=== PATIENT | female | born 1990 | race African-American/Black ===

== ENCOUNTER 2016-11-25 20:56 | Emergency (ER) | payer OTHER ==
[2016-11-25 21:20] VITALS: BP 121/67; PULSE 74; TEMP 98.3; BMI 29.8
[2016-11-25 21:46] LABS: URINE APPEARANCE SLCLOUDY; URINE BILIRUBIN NEGATIVE (NEGATIVE); URINE COLOR YELLOW; URINE GLUCOSE (UA) NEGATIVE (NEGATIVE); URINE KETONE 1+ (NEGATIVE); URINE NITRITE NEGATIVE (NEGATIVE); URINE PROTEIN NEGATIVE (NEGATIVE); URINE UROBILINOGEN NEGATIVE E.U./dl (0.2-1.0)
[2016-11-25 21:47] LABS: URINE BLOOD 1+ (NEGATIVE); URINE LEUK ESTERASE 2+ (NEGATIVE)
[2016-11-25 21:48] LABS: URINE BACTERIA RARE /hpf (NONE SEEN); URINE HYALINE CAST 4 /lpf; URINE MUCUS MANY; URINE RBC 9 /hpf (0-3); URINE WBC 104 /hpf (3-5)
--- NOTE | 2016-11-25 21:57 | PDOC ---
History of Present Illness - General Chief Complaint: Pain, Acute Stated Complaint: PRESSURE ON BLADDER Time Seen by Provider: 11/25/16 21:46 History Source: Patient Exam Limitations: No Limitations - History of Present Illness Initial Comments: 11/25/16 21:57 Patient is a 26-year-old female, no significant medical history currently on no medication presents with urinary frequency, dysuria, urinary retention. Patient reports last sexual encounter was Tuesday with the same partner who was recently tested for STDs and negative. Patient denies any fever, no back pain, no vaginal discharge or bleeding. No hematuria. Past Medical History: Denies. Allergies: No known allergies Medications: control Family History: Non-contributory Social History: Denies smoking, alcohol use, or IVDU Review of Systems GENERAL/CONSTITUTIONAL: No fever or chills. No weakness. No weight change. HEAD, EYES, EARS, NOSE AND THROAT: No change in vision. No ear pain or discharge. No sore throat. CARDIOVASCULAR: No chest pain or shortness of breath. RESPIRATORY: No cough, wheezing, or hemoptysis. GASTROINTESTINAL: No nausea, vomiting, diarrhea or constipation. No rectal bleeding. GENITOURINARY: Dysuria frequency and urinary retention. MUSCULOSKELETAL: No joint or muscle swelling or pain. No neck or back pain. SKIN AND BREASTS: No rash or easy bruising. NEUROLOGIC: No headache, vertigo, loss of consciousness, or loss of sensation. PSYCHIATRIC: No depression or anxiety. ENDOCRINE: No increased thirst. No abnormal weight change. HEMATOLOGIC/LYMPHATIC: No anemia, easy bleeding, or history of blood clots. ALLERGIC/IMMUNOLOGIC: No hives or skin allergy. No latex allergy. Physical Exam: GENERAL: The patient is awake, alert, and fully oriented, in no acute distress. LUNGS: Breath sounds equal, clear to auscultation bilaterally. No wheezes, and no crackles. HEART: Regular rate and rhythm, normal S1 and S2 without murmur, rub or gallop. ABDOMEN: Soft, nontender, normoactive bowel sounds. No guarding, no rebound. No masses. No bruising or abrasions MUSCULOSKELETAL: Normal range of motion, no edema. No clubbing or cyanosis. No cords, erythema, or tenderness. No CVA Tenderness with fist palpation. SKIN: Warm, Dry, normal turgor, no rashes or lesions noted. 11/25/16 22:11 Past History - Past Medical History Allergies/Adverse Reactions: Allergies Allergy/AdvReac Type Severity Reaction Status Date / Time No Known Allergies Allergy Verified 08/01/15 13:32 Home Medications: Ambulatory Orders Nitrofurantoin Monohyd/M-Cryst [Macrobid -] 100 mg PO BID #14 capsule 11/25/16 Anemia: Yes Cardiac Disorders: Yes (TACHYCARDIA) Suicide Attempt (Hx): No - Reproductive History Dysfunctional Uterine Bleeding: Yes - Immunization History Immunization Up to Date: Yes - Psycho/Social/Smoking Cessation Hx Anxiety: No Suicidal Ideation: No Smoking History: Never smoked Have you smoked in the past 12 months: No Number of Cigarettes Smoked Daily: 0 Information on smoking cessation initiated: No Hx Alcohol Use: No Drug/Substance Use Hx: No Substance Use Type: None Hx Substance Use Treatment: No *Physical Exam - Vital Signs Last Vital Signs Temp Pulse Resp BP Pulse Ox 98.3 F 74 14 121/67 100 11/25/16 21:17 11/25/16 21:17 11/25/16 21:17 11/25/16 21:17 11/25/16 21:17 ED Treatment Course - ADDITIONAL ORDERS Additional order review: Laboratory Results 11/25/16 21:30 Urine Color Yellow Urine Appearance Slcloudy Urine pH 5.0 Urine Protein Negative Urine Glucose (UA) Negative Urine Ketones 1+ H Urine Blood 1+ H Urine Nitrite Negative Urine Bilirubin Negative Urine Urobilinogen Negative Ur Leukocyte Esterase 2+ H Urine RBC 9 Urine WBC 104 Ur Epithelial Cells Rare Urine Bacteria Rare Hyaline Casts 4 Urine Mucus Many Urine HCG, Qual Negative Medical Decision Making - Medical Decision Making 11/25/16 22:14 A/P: Patient with urinary tract infection. We'll DC patient on Macrobid, follow- up with CHEMICAL ENGINEER she has an appointment next week and will be reexamined. I discussed the physical exam findings, ancillary test results and final diagnoses with the patient. I answered all of the patient's questions. The patient was satisfied with the care received and felt comfortable with the discharge plan and treatment plan. The patient will call to arrange follow-up and will return to the Emergency Department with any new, persistent or worsening symptoms. *DC/Admit/Observation/Transfer Diagnosis at time of Disposition: UTI (urinary tract infection) Qualifiers: Urinary tract infection type: site unspecified Hematuria presence: without hematuria Qualified Code(s): N39.0 - Urinary tract infection, site not specified - Discharge Dispostion Disposition: HOME Condition at time of disposition: Good Admit: No - Prescriptions Prescriptions: Nitrofurantoin Monohyd/M-Cryst [Macrobid -] 100 mg PO BID #14 capsule - Patient Instructions Printed Discharge Instructions: Urinary Tract Infection Additional Instructions: Increase fluids, recommend follow-up with TELECOM MANAGER. Refrain from sexual activity for at least a week
== END 2016-11-25 22:27 | disposition home or self-care (01) ==
LOC: JERFT 20:56
DX: N39.0 Urinary tract infection, site not specified (principal)
CPT/HCPCS: 81003; 81015; 84703; 87086; 87186; 99281-25

== ENCOUNTER 2018-03-16 05:12 | Emergency (ER) | payer OTHER ==
--- NOTE | 2018-03-16 05:24 | PDOC ---
History of Present Illness - General Chief Complaint: Toothache Stated Complaint: TOOTHACHE Time Seen by Provider: 03/16/18 05:21 - History of Present Illness Initial Comments: 03/16/18 05:22 27 yo F with h/o iron deficient anemia who p/w teeth pain. Patient reports worsening lower molar teeth pain beginning this AM, and characterized as sharp shooting teeth pain. Worse on right side. Pain worse with clenching jaws. Denies drooling, trismus, dysphagia, hoarsness/muffled voice, pain with mastication. Patient scheduled for outpt. dental apt. within 3-4 weeks. Denies OTC analgesia. Patient denies N/V, F,C, CP, SOB, urinary complaints, abdominal pain, diarrhea, constipation, lightheadedness, weakness, sensory changes. PMHx: as noted above ROS: as noted Allergies: NKDA Past History - Past Medical History Allergies/Adverse Reactions: Allergies Allergy/AdvReac Type Severity Reaction Status Date / Time No Known Allergies Allergy Verified 03/16/18 05:21 Home Medications: Ambulatory Orders Nitrofurantoin Monohyd/M-Cryst [Macrobid -] 100 mg PO BID #14 capsule 11/25/16 Clindamycin [Cleocin -] 450 mg PO Q8H #63 capsule MDD 1350 mg 03/16/18 Oxycodone HCl/Acetaminophen [Percocet 5-325 mg Tablet -] 1 tab PO TID PRN #10 tablet MDD 3 03/16/18 Anemia: Yes Cardiac Disorders: Yes (TACHYCARDIA) COPD: No - Reproductive History Dysfunctional Uterine Bleeding: Yes - Immunization History Immunization Up to Date: Yes - Suicide/Smoking/Psychosocial Hx Smoking History: Never smoked Have you smoked in the past 12 months: No Number of Cigarettes Smoked Daily: 0 Hx Alcohol Use: No Drug/Substance Use Hx: No Substance Use Type: None Hx Substance Use Treatment: No Review of Systems - Review of Systems Comments:: 03/16/18 05:22 GENERAL/CONSTITUTIONAL: No fever or chills. No weakness. HEAD, EYES, EARS, NOSE AND THROAT:+ Teeth pain. No change in vision. No ear pain or discharge. No sore throat. CARDIOVASCULAR: No chest pain or shortness of breath RESPIRATORY: No cough, wheezing, or hemoptysis. GASTROINTESTINAL: No nausea, vomiting, diarrhea or constipation. GENITOURINARY: No dysuria, frequency, or change in urination. MUSCULOSKELETAL: No joint or muscle swelling or pain. No neck or back pain. SKIN: No rash NEUROLOGIC: No headache, vertigo, loss of consciousness, or change in strength/ sensation. ENDOCRINE: No increased thirst. No abnormal weight change HEMATOLOGIC/LYMPHATIC: No anemia, easy bleeding, or history of blood clots. ALLERGIC/IMMUNOLOGIC: No hives or skin allergy. *Physical Exam - Vital Signs Last Vital Signs Temp Pulse Resp BP Pulse Ox 98.0 F 76 18 136/84 100 03/16/18 05:17 03/16/18 05:17 03/16/18 05:17 03/16/18 05:17 03/16/18 05:17 - Physical Exam Comments: 03/16/18 05:23 GENERAL: Awake, alert, and fully oriented, in no acute distress HEAD: No signs of trauma, normocephalic, atraumatic EYES: PERRLA, EOMI, sclera anicteric, conjunctiva clear ENT: + Dental caries at mandibular 3rd molar BL, with exposed enamel. Auricles normal inspection, hearing grossly normal, nares patent, oropharynx clear without exudates. Moist mucosa NECK: Normal ROM, supple, no lymphadenopathy, JVD, or masses LUNGS: No distress, speaks full sentences, clear to auscultation bilaterally HEART: Regular rate and rhythm, normal S1 and S2, no murmurs, rubs or gallops, peripheral pulses normal and equal bilaterally. EXTREMITIES : Normal inspection, Normal range of motion, no edema. No clubbing or cyanosis. SKIN: Warm, Dry, normal turgor, no rashes or lesions noted Medical Decision Making - Medical Decision Making 03/16/18 05:39 27 yo F with h/o iron deficient anemia who p/w BL molar teeth pain. VSS, AF. + Dental caries at mandibular 3rd molar BL, with exposed enamel. Probable pulpitis , with absent evidence of abscess. Low suspicion parotitis, mastoiditis, sialadenitis, tonsillits, or other concerning deep space infection of oral cavity. No evidence of respiratory compromise. Able to tolerate oral secretions , absent wheezing/stridor. Ed Course: Clindamycin 450 mg, Ibuprofen 600 mg Patient states that she will f/u with dental this week Clindamycin and Percocet sent to pharmacy Patient stable for d/c with return precautions *DC/Admit/Observation/Transfer Diagnosis at time of Disposition: Tooth ache - Discharge Dispostion Disposition: HOME Condition at time of disposition: Stable Decision to Admit order: No - Prescriptions Prescriptions: Clindamycin [Cleocin -] 450 mg PO Q8H #63 capsule MDD 1350 mg Oxycodone HCl/Acetaminophen [Percocet 5-325 mg Tablet -] 1 tab PO TID PRN #10 tablet MDD 3 PRN Reason: Severe Pain - Referrals Referrals: Zay Randle [Primary Care Provider] - - Patient Instructions Printed Discharge Instructions: DI for Dental Pain Additional Instructions: Please return to the emergency department with any new or worsening symptoms or concerns. Please follow up with your primary care physician within 72 hours. Please take 450 mg Clindamycin 3 times a day for 7 days. - Post Discharge Activity - Attestations Physician Attestion: 03/16/18 05:23 I attest to the information provided in this note.
[2018-03-16 05:26] VITALS: BP 136/84; PULSE 76; TEMP 98; BMI 29.0
--- NOTE | 2018-03-16 05:34 | PDOC ---
Attending Attestation - Resident Resident Name: Wilman Hayesson - ED Attending Attestation I have performed the following: I have examined & evaluated the patient, The case was reviewed & discussed with the resident, I agree w/resident's findings & plan, Exceptions are as noted - HPI HPI: 03/16/18 05:54 27 yo F presenting to the ER with a complaint of dental pain Pain has been present for It has been progressively worsening No fevers or chills She has already scheduled follow up with dental but this is not for another few weeks - Physicial Exam PE: 03/16/18 05:59 GENERAL: Awake, alert, and fully oriented, in no acute distress EYES: PERRLA, EOMI, sclera anicteric, conjunctiva clear ENT: + Dental caries at mandibular 3rd molar BL, with exposed enamel. NECK: Normal ROM, supple, no lymphadenopathy, JVD, or masses - Medical Decision Making 03/16/18 05:58 will d/c on abx and pain medications Pt strongly encouraged to follow up with Dental Urgent Care for possible dental extraction
[2018-03-16] MEDS ORDERED: CLINDAMYCIN HCL 150 MG CAPSULE (FP) PO ONE (05:36)
[2018-03-16] MEDS ORDERED: IBUPROFEN 600 MG TABLET (FP) PO ONE ×2 (05:36→05:40)
[2018-03-16] MEDS ORDERED: CLINDAMYCIN HCL 150 MG CAPSULE (FP) ONE (05:40)
== END 2018-03-16 06:16 | disposition home or self-care (01) ==
LOC: JER 05:12
DX: K08.89 Other specified disorders of teeth and supporting structures (principal)
CPT/HCPCS: 99281-25

== ENCOUNTER 2018-03-24 05:02 | Emergency (ER) | payer OTHER ==
[2018-03-24 05:48] VITALS: BP 117/71; PULSE 76; TEMP 99.4; BMI 29.8
--- NOTE | 2018-03-24 05:55 | PDOC ---
Attending Attestation - Resident Resident Name: Cherelle Lake - ED Attending Attestation I have performed the following: I have examined & evaluated the patient, The case was reviewed & discussed with the resident, I agree w/resident's findings & plan, Exceptions are as noted - HPI HPI: 03/24/18 05:58 Ms Rambo Watts is a 27 yo F presenting (again) to the ER with a complaint of dental pain Pain has been present for a week ago It has been progressively worsening No fevers or chills She was seen in the ER She has already scheduled follow up with dental but this is not for another few weeks 03/24/18 06:11 - Physicial Exam PE: 03/24/18 06:03 GENERAL: Awake, alert, and fully oriented, in no acute distress EYES: PERRLA, EOMI, sclera anicteric, conjunctiva clear ENT: + Dental caries at mandibular 3rd molar BL, with exposed enamel. NECK: Normal ROM, supple, no lymphadenopathy 03/24/18 06:10 - Medical Decision Making 03/24/18 05:56 Pt will be seeing the dentist on Tuesday (3 days) Pt is fine with alternating motrin and tylenol for pain Return precautions given
[2018-03-24] MEDS ORDERED: FLUCONAZOLE 50 MG TABLET PO ONE (06:01)
--- NOTE | 2018-03-24 06:08 | PDOC ---
History of Present Illness - General Chief Complaint: Toothache Stated Complaint: TOOTHACHE Time Seen by Provider: 03/24/18 05:49 History Source: Patient Exam Limitations: No Limitations - History of Present Illness Initial Comments: 03/24/18 06:03 27 yo F with h/o iron deficient anemia who presents with toothache. She was recently seen here at [facility] (03/16) for toothache/infection, she was prescribed antibiotics and pain medication. Patient states that the pain has improved but cannot see her dentist until Tuesday. She has been taking advil and ibprofen for pain. She also endorses vaginal itching and irritation after taking antibiotics. Patient reports worsening lower molar teeth pain beginning this AM, and characterized as sharp shooting teeth pain. Worse on right side. Pain worse with clenching jaws. Denies drooling, trismus, dysphagia, hoarsness/muffled voice, pain with mastication. Patient denies N/V, F,C, CP, SOB, urinary complaints, abdominal pain, diarrhea, constipation, lightheadedness, weakness, sensory changes. 03/24/18 06:09 Timing/Duration: 1 week Severity: mild Past History - Past Medical History Allergies/Adverse Reactions: Allergies Allergy/AdvReac Type Severity Reaction Status Date / Time No Known Allergies Allergy Verified 03/16/18 05:21 Home Medications: Ambulatory Orders Clindamycin [Cleocin -] 450 mg PO Q8H #63 capsule MDD 1350 mg 03/16/18 Oxycodone HCl/Acetaminophen [Percocet 5-325 mg Tablet -] 1 tab PO TID PRN #10 tablet MDD 3 03/16/18 Anemia: Yes Cardiac Disorders: Yes (TACHYCARDIA) COPD: No - Reproductive History Dysfunctional Uterine Bleeding: Yes - Immunization History Immunization Up to Date: Yes - Suicide/Smoking/Psychosocial Hx Smoking History: Never smoked Have you smoked in the past 12 months: No Number of Cigarettes Smoked Daily: 0 Hx Alcohol Use: No Drug/Substance Use Hx: No Substance Use Type: None Hx Substance Use Treatment: No Review of Systems - Review of Systems Able to Perform ROS?: Yes Is the patient limited Martiniquais proficient: Yes Constitutional: Yes: See HPI HEENTM: Yes: Mouth Pain, Dental Problems Respiratory: No: Cough, Shortness of Breath Cardiac (ROS): No: Chest Pain, Lightheadedness, Palpitations ABD/GI: No: Abdominal Distended, Abd. Pain w/ defecation *Physical Exam - Vital Signs Last Vital Signs Temp Pulse Resp BP Pulse Ox 99.4 F 76 19 117/71 99 03/24/18 05:05 03/24/18 05:05 03/24/18 05:05 03/24/18 05:05 03/24/18 05:05 - Physical Exam General Appearance: Yes: Appropriately Dressed. No: Apparent Distress HEENT: positive: Other ( Dental caries at mandibular 3rd molar BL, with exposed enamel. Auricles normal inspection, hearing grossly normal, nares patent, oropharynx clear without). negative: Excessive drooling, Thrush Respiratory/Chest: positive: Lungs Clear Cardiovascular: positive: Regular Rhythm, Regular Rate Medical Decision Making - Medical Decision Making 03/24/18 06:10 This is a 27 year old female with tooth decay and erosion. On empiric antibiotics for infection. Has completed 6 out of 7 day course. Pain improved. #tooth ache #vaginal itching most likely due to yeast infection from antibiotics -tyelenol -diflucan 03/24/18 06:13 Disposition: d/c home on Tylenol and ibuprofen; cont antibiotics *DC/Admit/Observation/Transfer Diagnosis at time of Disposition: Tooth ache - Discharge Dispostion Disposition: HOME Condition at time of disposition: Stable Decision to Admit order: No - Referrals Referrals: Zay Randle [Primary Care Provider] - - Patient Instructions Printed Discharge Instructions: DI for Tooth Decay, DI for Dental Pain Additional Instructions: Ember Rambo Watts please continue to take tyelenol and ibprofen interchangeably for tooth pain. As discussed do not continue to take advil with ibprofen due to serious effects of kidney injury and stomach ulcer. Please see dentist as soon as possible and continue your antibiotic course. If you experience any worsening of symptoms please return to the emergency room. - Post Discharge Activity
== END 2018-03-24 06:43 | disposition home or self-care (01) ==
LOC: JER 05:02
DX: K08.89 Other specified disorders of teeth and supporting structures (principal)
CPT/HCPCS: 99281-25

== ENCOUNTER 2018-03-24 10:24 | Emergency (ER) | payer OTHER ==
[2018-03-24 10:36] VITALS: BP 124/70; PULSE 68; TEMP 97.9; BMI 29.8
--- NOTE | 2018-03-24 11:38 | PDOC ---
History of Present Illness - General Chief Complaint: Toothache Stated Complaint: TOOTHACHE Time Seen by Provider: 03/24/18 10:59 History Source: Patient Exam Limitations: No Limitations - History of Present Illness Initial Comments: 03/24/18 11:31 HISTORY OF PRESENT ILLNESS: 27-year-old female without significant medical history presents emergency department for reevaluation of toothache. Patient has had multiple visits to this emergency room already and has an appointment with Deya hallman for dental care on Tuesday 03/27. Patient was initially seen and placed on clindamycin and given Percocet to help control the pain. Patient re-present of her pain this morning and is tried alternating Tylenol and Motrin which has not relieved her pain. Patient is here for reevaluation and pain management. No recent travel or sick contacts. PAST MEDICAL HISTORY: Denies past medical history SURGICAL HISTORY: Denies ALLERGIES: No known drug allergies REVIEW OF SYSTEMS General/Constitutional: Denies fever or chills. Denies weakness, weight change. HEENT: Denies change in vision. Denies ear pain or discharge. Denies sore throat. Toothache. Cardiovascular: Denies chest pain or shortness of breath. Respiratory: Denies cough, wheezing, or hemoptysis. Gastrointestinal: Denies nausea, vomiting, diarrhea or constipation. Denies rectal bleeding. Genitourinary: Denies dysuria, frequency, or change in urination. Musculoskeletal: Denies joint or muscle swelling or pain. Denies neck or back pain. Skin and breasts: Denies rash or easy bruising. Neurologic: Denies headache, vertigo, loss of consciousness, or loss of sensation. Psychiatric: Denies depression or anxiety. Endocrine: Denies increased thirst. Denies abnormal weight change. Hematologic/Lymphatic: Denies anemia, easy bleeding, or history of blood clots. Allergic/Immunologic: Denies hives or skin allergy. Denies latex allergy. PHYSICAL EXAM General Appearance: Well-appearing, appropriately dressed. No apparent distress , no intoxication. HEENT: EOMI, PERRLA, normal ENT inspection, normal voice, TMs normal, pharynx normal. No conjunctival pallor. No photophobia, scleral icterus. Multiple obvious dental caries presents most notably to 17,16,31,32. With almost total destruction of the teeth 17 and 32. No palpable abscess. Neck: Supple. Trachea midline. No tenderness, rigidity, carotid bruit, stridor , lymphadenopathy, or thyromegaly. Respiratory/Chest: Lungs CTAB. No shortness of breath, chest tenderness, respiratory distress, accessory muscle use. No crackles, rales, rhonchi, stridor , wheezing, dullness Cardiovascular: RRR. S1, S2. No JVD, murmur, bradycardia, tachycardia. Vascular Pulses: Dorsalis-Pedis (R): 2+, Dorsalis-Pedis (L): 2+ Gastrointestinal/Abdominal: Normal bowel sounds. Abdomen soft, non-distended. No tenderness or rebound tenderness. No organomegaly, pulsatile mass, guarding, hernia, hepatomegaly, splenomegaly. Lymphatic: No adenopathy, tenderness. Musculoskeletal/Extremities: Normal inspection. FROM of all extremities, normal capillary refill. Pelvis Stable. No CVA tenderness. No tenderness to extremities, pedal edema, swelling, erythema or deformity. Integumentary: Appropriate color, dry, warm. No cyanosis, erythema, jaundice or rash Neurologic: tax compliance manager II-XII intact. Fully oriented, alert. Appropriate mood/affect. Motor strength 5/5. No appreciable EOM palsy, facial droop or sensory deficit. Past History - Past Medical History Allergies/Adverse Reactions: Allergies Allergy/AdvReac Type Severity Reaction Status Date / Time No Known Allergies Allergy Verified 03/24/18 10:37 Home Medications: Ambulatory Orders Acetaminophen [Tylenol] 650 mg PO QID PRN 03/24/18 Clindamycin [Cleocin -] 450 mg PO Q8H #15 capsule MDD 1350 mg 03/24/18 Ibuprofen [Ibu] 800 mg PO QID PRN 03/24/18 Oxycodone HCl/Acetaminophen [Percocet 5-325 mg Tablet] 1 tab PO Q4H PRN #15 tablet MDD 5 03/24/18 Anemia: Yes Cardiac Disorders: Yes (TACHYCARDIA) COPD: No - Reproductive History Dysfunctional Uterine Bleeding: Yes - Immunization History Immunization Up to Date: Yes - Suicide/Smoking/Psychosocial Hx Smoking History: Unknown if ever smoked Have you smoked in the past 12 months: No Number of Cigarettes Smoked Daily: 0 Hx Alcohol Use: No Drug/Substance Use Hx: No Substance Use Type: None Hx Substance Use Treatment: No *Physical Exam - Vital Signs Last Vital Signs Temp Pulse Resp BP Pulse Ox 97.9 F 68 18 124/70 03/24/18 10:35 03/24/18 10:35 03/24/18 10:35 03/24/18 10:35 Medical Decision Making - Medical Decision Making 03/24/18 11:35 A/P: 27-year-old woman with multiple dental caries causing toothache Inferior alveolar block Extend clindamycin prescription Percocet 1 tablet every 4 hours as needed for pain. Discharge *DC/Admit/Observation/Transfer Diagnosis at time of Disposition: Dental caries - Discharge Dispostion Disposition: HOME Condition at time of disposition: Stable Decision to Admit order: No - Prescriptions Prescriptions: Clindamycin [Cleocin -] 450 mg PO Q8H #15 capsule MDD 1350 mg Oxycodone HCl/Acetaminophen [Percocet 5-325 mg Tablet] 1 tab PO Q4H PRN #15 tablet MDD 5 PRN Reason: For Toothache - Referrals Referrals: Zay Randle [Primary Care Provider] - - Patient Instructions Printed Discharge Instructions: DI for Tooth Decay Additional Instructions: Rest, drink lots of fluids: Teas, water, soups Saltwater gargles/ keep mouth clean and rinse after each meal May use wet teabag for pain relief to area Avoid hard chewing foods, stick to ice cream, Jell-O, yogurt etc. Tylenol or Motrin for fever and pain Complete all medication as prescribed Call [facility] at [phone] Followup with private physician in one to 2 days as needed Return to emergency department for worsened symptoms, fevers, swelling to face or worsened pain - Post Discharge Activity
== END 2018-03-24 12:14 | disposition home or self-care (01) ==
LOC: JERFT 10:24
DX: K02.9 Dental caries, unspecified (principal); R00.0 Tachycardia, unspecified
CPT/HCPCS: 99281-25

== ENCOUNTER 2018-10-27 01:40 | Emergency (ER) | payer OTHER | END 2018-10-27 01:53 | disposition home or self-care (01) | LOC: FER 01:40 ==

== ENCOUNTER 2022-04-29 00:38 | Emergency (ER) | payer OTHER ==
[2022-04-29] MEDS ORDERED: LACTULOSE 20 GM/30 ML UDC (FOR ORAL USE ONLY) PO ONE (00:46)
[2022-04-29] MEDS ORDERED: DALBAVANCIN HCL 1,500 MG in DEXTROSE 5%-WATER - 500 ML IVPB ONE (00:58)
[2022-04-29] MEDS ORDERED: POLYETHYLENE GLYCOL (HEALTHYLAX) 3350 17 GM PACKET PO SCH (01:00)
[2022-04-29 01:03] VITALS: BP 125/73; PULSE 95; RESP 18; TEMP 98; BMI 28.3
[2022-04-29] MEDS ORDERED: LACTULOSE 20 GM/30 ML UDC (FOR ORAL USE ONLY) ONE (01:05)
[2022-04-29] MEDS ORDERED: DALBAVANCIN HCL 500 MG VIAL (RESTRICTED TO ID ONLY) IVPB ONE (01:05)
[2022-04-29] MEDS ORDERED: KETOROLAC TROMETHAMINE 30 MG/1 ML VIAL IVPUSH ONE (02:26)
[2022-04-29] MEDS ORDERED: ACETAMINOPHEN 1000 MG/100 ML BAG IVPB ONE (02:26)
[2022-04-29 03:06] LABS: HEMATOCRIT 32.8 % (32.4-45.2); HEMOGLOBIN 10.4 GM/dL (10.7-15.3); MCH 23.9 pg (25.7-33.7); MCHC 31.6 g/dl (32.0-36.0); MEAN CELL VOLUME 75.8 fl (80-96); RBC 4.33 M/mm3 (3.60-5.2); WHITE BLOOD COUNT 6.7 K/mm3 (4.0-10.0)
[2022-04-29 03:07] LABS: BASO % 0.4 % (0-2.0); EOS % 1.9 % (0-4.5); LYMPH % 25.2 % (8-40); MEAN PLT VOLUME 8.2 fl (7.5-11.1); MONO % 6.8 % (3.8-10.2); NEUT % 65.7 % (42.8-82.8); PLATELET COUNT 296 10^3/uL (134-434)
[2022-04-29 03:17] LABS: ALBUMIN 3.8 g/dl (3.4-5.0); BLOOD UREA NITROGEN 10.8 mg/dL (7-18)
[2022-04-29 03:22] LABS: BILIRUBIN,TOTAL 0.2 mg/dL (0.2-1); TOT PROT 8.2 g/dl (6.4-8.2)
== END 2022-04-29 03:57 | disposition home or self-care (01) ==
LOC: FER 00:38
PROC: 3E033GC Introduction of Other Therapeutic Substance into Peripheral Vein, Percutaneous Approach (ICD-10-PCS; principal; 2022-04-29)
DX: K62.89 Other specified diseases of anus and rectum (principal); K59.00 Constipation, unspecified
CPT/HCPCS: 36415; 80053; 85025; 96365; 96375; 99284-25; J0875